=== PATIENT | female | born 1950 | race Caucasian/White ===

== ENCOUNTER 2021-05-18 14:11 | Emergency (ER) | payer MEDICARE, OTHER ==
--- NOTE | 2021-05-18 16:41 | CR ---
INDICATION: Fall, pain. Prior fracture 3 months ago. LEFT WRIST: Three views of the left wrist were obtained 05/18/21. Comparison studies were not retrievable at the time of dictation. There is deformity at the radiocarpal joint surface with dorsal angulation of the radial joint surface which appears to be on the basis of a previous healed fracture site. The possibility of a superimposed acute fracture site in that area is difficult to entirely exclude without old films for comparison. These will be obtained when possible. At any rate, no gross distraction or severe angulation is seen with adequate position and alignment of the former fracture fragments. Minimal degenerative changes are noted at the navicular multangular joints with moderate to moderately severe degenerative changes at the first metacarpocarpal joint. Mild degenerative changes are noted at the radiocarpal joint laterally. IMPRESSION: 1. Previous fracture of the distal radial metaphysis with mild deformity - adequate position and alignment and an appearance of healing. The possibility of a superimposed acute fracture site is difficult to entirely exclude without the old films for comparison - these will be obtained when possible. 2. Osteoarthritis. [facility]
--- NOTE | 2021-05-18 16:47 | CR ---
INDICATION: Fall, pain at patella. LEFT KNEE: Three views of the left knee were obtained 05/18/21 and reveal suggestion of a longitudinal possibly oblique fracture through the lateral aspect of the patella - essentially a hairline fracture in good position and alignment is suggested. This could be confirmed by CT as necessary or follow-up x-rays in 10 to 14 days. Hypertrophic changes are noted laterally off the patella. There is also a spur off the cranial anterior aspect of the patella at the tendon insertion. Mild degenerative changes are noted at the intercondylar spines additionally. There may be some mild loss of lateral femorotibial joint space. No other acute bone or joint abnormality was identified - no definite joint effusion was seen. IMPRESSION: Findings suggest an essentially undisplaced fracture through the lateral aspect of the patella. [facility]
--- NOTE | 2021-05-18 16:53 | CR ---
INDICATION: Fall, pain laterally. RIGHT FOOT: Three views of the right foot revealed a transverse fracture of the proximal metaphysis of the fifth metatarsal in good position and alignment. Osteoarthritic changes are noted at the third, fourth and fifth metatarsal phalangeal joints - most prominent at the fifth and also at the DIPJs of the second, third and fourth toes and minimally at the interphalangeal joint of the fifth toe. Bunion deformity is noted medially with metatarsus varus hallux valgus and degenerative changes are also seen at the first metatarsophalangeal joint with lateral subluxation of the great toe. IMPRESSION: 1. Fracture fifth metatarsal in good position and alignment. 2. Osteoarthritis. 3. Bunion deformity. Report was called to Dr. Koehler at 1627 hours. [facility]
--- NOTE | 2021-05-18 17:00 | EDM.PDOC ---
ED HPI GENERAL MEDICAL PROBLEM - General Chief Complaint: Lower Extremity Injury/Pain Stated Complaint: FELL Time Seen by Provider: 05/18/21 15:15 Source of Information: Reports: Patient History Limitations: Reports: No Limitations - History of Present Illness INITIAL COMMENTS - FREE TEXT/NARRATIVE: c/o fall pt walked out of a [employer] restaurant, did not see a 4" raised curb, tripped and fell, not sure how she landed has pain at L elbow, L wrist, L patella and R foot has a fx of her L wrist 2m ago, tx in [place] where she is from, just got out of a splint does not think she landed on her L hand, thinks she hit her L elbow on pavement which aleksandra the wrist Generalized Pain Score (Numeric/FACES): 4 - Related Data Allergies Allergy/AdvReac Type Severity Reaction Status Date / Time clindamycin Allergy Other Verified 05/18/21 14:34 Penicillins Allergy Other Verified 05/18/21 14:34 Past Medical History Oncologic (Cancer) History: Reports: Breast Social & Family History - Tobacco Use Tobacco Use Status *Q: Never Tobacco User Second Hand Smoke Exposure: No - Caffeine Use Caffeine Use: Reports: Coffee - Recreational Drug Use Recreational Drug Use: No Review of Systems - Review of Systems Review Of Systems: See Below Constitutional: Reports: No Symptoms Eyes: Reports: No Symptoms Ears: Reports: No Symptoms Nose: Reports: No Symptoms Mouth/Throat: Reports: No Symptoms Respiratory: Reports: No Symptoms Cardiovascular: Reports: No Symptoms GI/Abdominal: Reports: No Symptoms Genitourinary: Reports: No Symptoms Musculoskeletal: Reports: Joint Pain Skin: Reports: No Symptoms Neurological: Reports: No Symptoms Psychiatric: Reports: No Symptoms ED EXAM, GENERAL - Physical Exam Exam: See Below Free Text/Narrative:: abrasion .5 x 2 cm at elbow, superficial not bleeding L elbow with no bony tenderness, FROM L wrist with 1+ tender at distal radius and distual ulna, slight swell dorsally L patella with 1-2+ tender at lateral aspect R foot with 1+ tender at prox R MT head with no swell/ecchymosis Exam Limited By: Other (rather sad) General Appearance: Alert Psychiatric: Depressed Mood Course - Vital Signs Last Recorded V/S: Last Vital Signs Temp 37.2 C 05/18/21 14:37 Pulse 96 05/18/21 14:37 Resp 18 05/18/21 14:37 BP 162/90 H 05/18/21 14:37 Pulse Ox 96 05/18/21 14:37 - Re-Assessments/Exams Free Text/Narrative Re-Assessment/Exam: 05/18/21 17:09 images reviewed and d/w Dr Dickerson L patella with a nondisplaced vertical lucency on lateral aspect less than 5 mm from lateral margin, not in midline, will have some soreness as the patella retinaculum attaches for stabilization, however the body fo the patella is intact L wrist with old fx, no old films for comparison which Dr Dickerson requested and will take a day or two to arrive R foot with a nondisplaced fx through 5th MT head pt able to ambulate although told she will need to wear a walking boot to prevent pivoting on midfoot and causing fx to displace pt lives alone in [place], , planning on driving back today or tomorrow, advised she should have someone drive her car back pt's L wrist splint is at home, a new splint applied here will use a 6" Roberto wrap for L knee to provide support, a knee sleeve would be an option as well pt plans to f/u with her ortho in [place] Departure - Departure Time of Disposition: 16:54 Disposition: Home, Self-Care 01 Condition: Fair Clinical Impression: Nondisplaced fracture of fifth right metatarsal bone, Nondisplaced fracture of left patella, Sprain of left wrist, Contusion of left elbow - Discharge Information *PRESCRIPTION DRUG MONITORING PROGRAM REVIEWED*: Not Applicable *COPY OF PRESCRIPTION DRUG MONITORING REPORT IN PATIENT JIE: Not Applicable Instructions: Metatarsal Fracture, Patellar Fracture, Adult, Wrist Sprain, Adult Referrals: PCP,Not In Area [Primary Care Provider] - Additional Instructions: Use walking boot to support your right foot. No driving until cleared by your orthopedic surgeon to do so. Use Roberto wrap on left knee. Limit walking. Limit bending of the left knee. Use splint on left wrist until you receive further instructions from your orthopedic surgeon. See your orthopedic surgeon in 4-7 days for further recommendations. For discomfort, if needed, take acetaminophen 500 mg 2 tabs 4 times a day. Use ice for 10 minutes 4 times a day as needed. Sepsis Event Note (ED) - Evaluation Sepsis Screening Result: No Definite Risk - Focused Exam Vital Signs: Vital Signs Temp Pulse Resp BP Pulse Ox 05/18/21 14:37 37.2 C 96 18 162/90 H 96
== END 2021-05-18 17:25 | disposition home or self-care (01) ==
LOC: FB.ED 14:11
DX: S92.354A Nondisplaced fracture of fifth metatarsal bone, right foot, initial encounter for closed fracture (principal); S82.002A Unspecified fracture of left patella, initial encounter for closed fracture; S63.502A Unspecified sprain of left wrist, initial encounter; S50.02XA Contusion of left elbow, initial encounter; Z88.1 Allergy status to other antibiotic agents; Z88.0 Allergy status to penicillin; W01.0XXA Fall on same level from slipping, tripping and stumbling without subsequent striking against object, initial encounter; Y93.01 Activity, walking, marching and hiking; Y92.511 Restaurant or cafe as the place of occurrence of the external cause
CPT/HCPCS: 73110-LT; 73562-LT; 73630-RT; 99283-25